=== PATIENT | female | born 1940 | race Native Hawaiian/Other Pacific Islander ===

== ENCOUNTER 2016-07-14 10:28 | Outpatient (CLI) | payer OTHER ==
[~2016-07-14 10:28] MED LIST: ACID REDUCER150 MG PO; ASA LO-DOSE81 MG PO; FLUOXETINE10 M2 PO; FURO40TA93 PO; MYRBETRIQ25 MG PO; PROPRANOLOL20 MG PO; SPIR25TA66 PO
[2016-07-14] MEDS ORDERED: SPIR100T7 PO (15:31)
[2016-07-14] MEDS ORDERED: AZO PO (15:33)
[2016-07-14] MEDS ORDERED: ARTIFICIAL TEAR1 OP (15:34)
== END 2016-07-14 10:31 | disposition short-term general hospital (02) ==
LOC: AMB 10:28
DX: R41.82 Altered mental status, unspecified (principal); R53.1 Weakness
CPT/HCPCS: A0425; A0427

== ENCOUNTER 2016-07-14 10:43 | Inpatient (IN) | payer OTHER ==
[2016-07-14] VITALS (8 sets, daily range): BP systolic 112–129; BP diastolic 47–69; TEMP 97.5–98.1; Ht 137.2 cm; Wt 71.0 kg
[~2016-07-14] VITALS: Ht 137.2 cm; Wt 71.0 kg
[2016-07-14 10:57] LABS: PLATELET COUNT 101 K/uL (152-353)
[2016-07-14 11:33] LABS: POTASSIUM 4.3 mmol/L (3.6-5.2); SODIUM 134 mmol/L (136-145)
[2016-07-14] MEDS ORDERED: SPIR100T7 PO (15:31)
[2016-07-14] MEDS ORDERED: AZO PO (15:33)
[2016-07-14] MEDS ORDERED: ARTIFICIAL TEAR1 OP (15:34)
[2016-07-15] VITALS: BP 116/58; TEMP 97.5
[2016-07-15 04:00] VITALS: BP 126/64; TEMP 97.6
[2016-07-15 04:05] LABS: PLATELET COUNT 84 K/uL (152-353)
[2016-07-15 04:09] LABS: POTASSIUM 3.9 mmol/L (3.6-5.2)
[2016-07-15 08:00] VITALS: BP 1274/67; TEMP 98
[2016-07-15 12:00] VITALS: BP 131/66; TEMP 98.1
[2016-07-15 16:00] VITALS: BP 124/64; TEMP 98.3
[2016-07-15 20:00] VITALS: BP 114/53; TEMP 98.5
[2016-07-16] VITALS: BP 109/60; TEMP 97.9
[2016-07-16 04:00] VITALS: BP 128/60; TEMP 98
[2016-07-16 04:48] LABS: PLATELET COUNT 98 K/uL (152-353)
[2016-07-16 04:55] LABS: POTASSIUM 3.5 mmol/L (3.6-5.2)
[2016-07-16 07:26] LABS: PARTIAL THROMBOPLASTIN TIME 35.3 SECONDS (24.5-33.6)
[2016-07-16 08:00] VITALS: BP 113/55; TEMP 98.6
[2016-07-16 12:28] VITALS: BP 133/71; TEMP 98.2
[2016-07-16 16:00] VITALS: BP 152/73; TEMP 97.8
[2016-07-16 20:00] VITALS: BP 136/81; TEMP 98.9
[2016-07-17 00:27] VITALS: BP 138/71; TEMP 98.3
[2016-07-17 05:12] VITALS: BP 135/66; TEMP 97.9
[2016-07-17 07:17] LABS: PLATELET COUNT 89 K/uL (152-353); POTASSIUM 3.7 mmol/L (3.6-5.2)
[2016-07-17 08:00] VITALS: BP 137/67; TEMP 98.1
[2016-07-17 12:00] VITALS: BP 138/63; TEMP 98.2
[2016-07-17 16:00] VITALS: BP 132/54; TEMP 98.4
[2016-07-17 20:00] VITALS: BP 150/70; TEMP 98
[2016-07-18] VITALS: BP 146/76; TEMP 98
[2016-07-18 04:59] LABS: PLATELET COUNT 105 K/uL (152-353)
[2016-07-18 05:19] LABS: POTASSIUM 3.7 mmol/L (3.6-5.2)
[2016-07-18 05:37] VITALS: BP 156/57; TEMP 98.8
[2016-07-18 08:21] VITALS: BP 116/60; TEMP 98.1
[2016-07-18 12:00] VITALS: BP 114/58; TEMP 98
[2016-07-18 16:00] VITALS: BP 120/48; TEMP 97.9
[2016-07-18 20:00] VITALS: BP 104/59; TEMP 98.8
[2016-07-19] VITALS: BP 114/58; TEMP 98.3
[2016-07-19 04:00] VITALS: BP 123/58; TEMP 98.5
[2016-07-19 08:00] VITALS: BP 107/53; TEMP 97.9
[2016-07-19 08:54] LABS: PLATELET COUNT 85 K/uL (152-353)
[2016-07-19 12:00] VITALS: BP 110/62; TEMP 98
[2016-07-19 16:00] VITALS: BP 112/53; TEMP 97.9
[2016-07-19 20:00] VITALS: BP 110/63; TEMP 98
[2016-07-20] VITALS: BP 115/52; TEMP 97.9
[2016-07-20 04:00] VITALS: BP 104/56; TEMP 97.8
[2016-07-20 06:02] LABS: POTASSIUM 3.8 mmol/L (3.6-5.2)
[2016-07-20 07:12] LABS: PLATELET COUNT 51 K/uL (152-353)
[2016-07-20 08:00] VITALS: BP 112/45; TEMP 97.8
[2016-07-20 12:00] VITALS: BP 118/52; TEMP 98
[2016-07-20 16:00] VITALS: BP 124/58; TEMP 97.8
[2016-07-20 20:00] VITALS: BP 99/50; TEMP 98.4
[2016-07-21] VITALS: BP 120/56; TEMP 98
[2016-07-21 04:00] VITALS: BP 98/65; TEMP 97.8
[2016-07-21 05:29] LABS: PLATELET COUNT 83 K/uL (152-353)
[2016-07-21 05:36] LABS: POTASSIUM 3.5 mmol/L (3.6-5.2)
[2016-07-21 08:29] VITALS: BP 121/83; TEMP 97.7
[2016-07-21 12:00] VITALS: BP 145/82; TEMP 98.1
== END 2016-07-21 16:25 | disposition home health service (06) | DRG 442 ==
LOC: ED 10:43 → MED/SURG 13:38
PROVIDERS: Emergency Medicine; Internal Medicine; ADMIT Specialist
DX: K72.90 Hepatic failure, unspecified without coma (principal); N39.0 Urinary tract infection, site not specified; E72.20 Disorder of urea cycle metabolism, unspecified; E86.0 Dehydration; K74.69 Other cirrhosis of liver; M15.8 Other polyosteoarthritis; I10 Essential (primary) hypertension; B96.20 Unspecified Escherichia coli [E. coli] as the cause of diseases classified elsewhere
CPT/HCPCS: 36415; 36600; 80048; 80053; 81000; 82140; 82272; 82550; 82553; 82805; 83605; 83735; 84100; 84484; 85027; 85379; 85610; 85651; 85730; 87045; 87077; 87086; 87088; 87186; 87205; 87798; 87899; 93005; 96360; 96372; 99284; J1644; J1720; J1940; J3411; J3475; J3490

== ENCOUNTER 2016-08-25 20:10 | Outpatient (CLI) | payer OTHER ==
[~2016-08-25 20:10] MED LIST changes: +ARTIFICIAL TEAR1 OP; +AZO PO; +SPIR100T7 PO
== END 2016-08-25 20:14 | disposition short-term general hospital (02) ==
LOC: AMB 20:10
DX: R53.1 Weakness (principal)
CPT/HCPCS: A0425; A0429

== ENCOUNTER 2016-08-25 20:20 | Inpatient (IN) | payer OTHER ==
[~2016-08-25] VITALS: Ht 160 cm; Wt 70.9 kg
[2016-08-25 20:39] VITALS: BP 134/68; TEMP 98.2
[2016-08-25 21:13] LABS: PLATELET COUNT 101 K/uL (152-353)
[2016-08-25 21:14] LABS: POTASSIUM 4.5 mmol/L (3.6-5.2); SODIUM 133 mmol/L (136-145)
[2016-08-26] VITALS (7 sets, daily range): BP systolic 114–154; BP diastolic 48–69; TEMP 97.8–98.6; Ht 160 cm; Wt 70.9 kg
[2016-08-27] VITALS: BP 107/56; TEMP 98
[2016-08-27 04:00] VITALS: BP 120/53; TEMP 98.7
[2016-08-27 05:36] LABS: PLATELET COUNT 96 K/uL (152-353)
[2016-08-27 05:41] LABS: POTASSIUM 4.6 mmol/L (3.6-5.2)
[2016-08-27 08:00] VITALS: BP 111/49; TEMP 98.2
== END 2016-08-27 15:30 | disposition home or self-care (01) | DRG 443 ==
LOC: ED 20:20 → MED/SURG 23:15
PROVIDERS: Emergency Medicine; ADMIT Emergency Medicine
DX: K72.00 Acute and subacute hepatic failure without coma (principal); K74.69 Other cirrhosis of liver; I10 Essential (primary) hypertension; E86.0 Dehydration; R19.7 Diarrhea, unspecified; K72.10 Chronic hepatic failure without coma; Z91.14 Patient's other noncompliance with medication regimen; D53.9 Nutritional anemia, unspecified
CPT/HCPCS: 36415; 80048; 80053; 82140; 82550; 83735; 84484; 85027; 99283; J2780

== ENCOUNTER 2016-09-18 10:49 | Outpatient (CLI) | payer OTHER | END 2016-09-18 10:52 | disposition short-term general hospital (02) | LOC: AMB 10:49 | DX: S41.111A Laceration without foreign body of right upper arm, initial encounter (principal); W18.39XA Other fall on same level, initial encounter; Y92.89 Other specified places as the place of occurrence of the external cause | CPT/HCPCS: A0425; A0429 ==

== ENCOUNTER 2016-09-29 14:17 | Outpatient (CLI) | payer OTHER | END 2016-09-29 14:20 | disposition short-term general hospital (02) | LOC: AMB 14:17 | DX: R53.1 Weakness (principal); W07.XXXA Fall from chair, initial encounter; Y92.098 Other place in other non-institutional residence as the place of occurrence of the external cause | CPT/HCPCS: A0425; A0429 ==

== ENCOUNTER 2016-09-29 14:26 | Inpatient (IN) | payer OTHER ==
[~2016-09-29] VITALS: Ht 162.6 cm; Wt 57.4 kg
[2016-09-29 14:25] VITALS: BP 120/68; TEMP 98
[2016-09-29 15:25] VITALS: BP 118/66
[2016-09-29 15:28] LABS: PLATELET COUNT 80 K/uL (152-353)
[2016-09-29 15:29] LABS: POTASSIUM 4.7 mmol/L (3.6-5.2)
[2016-09-29 16:25] VITALS: BP 110/58
[2016-09-29 17:25] VITALS: BP 106/70
[2016-09-29 20:00] VITALS: BP 105/38; TEMP 97.9
[2016-09-29 22:19] VITALS: BP 146/60; TEMP 98.3; Ht 162.6 cm; Wt 57.4 kg
--- NOTE | 2016-09-29 22:54 | NUR ---
PT HERE AT CHANGE OF SHIFT. EATING MEAL UPON ENTERING ROOM. PT HAS A LARGE BRUISE TO LEFT ARM FROM WRIST TO UPPER ARM. DR HOPKINS CALLED ABOUT MEDS ORDERED FROM ER. NEW ORDERS RECEIVED. BETSEY DOUGLASS AND SCD'S APPLIED TO PT'S LEGS POLA.
[2016-09-30] VITALS: BP 103/45; TEMP 97.8
[2016-09-30 04:00] VITALS: BP 95/50; TEMP 97.8
[2016-09-30 08:00] VITALS: BP 113/54; TEMP 97.7
[2016-09-30 09:22] LABS: PLATELET COUNT 86 K/uL (152-353)
[2016-09-30 09:45] LABS: POTASSIUM 4.4 mmol/L (3.6-5.2)
[2016-09-30 12:00] VITALS: BP 111/55; TEMP 98.2
[2016-09-30 16:00] VITALS: BP 103/72; TEMP 98.9
[2016-09-30 20:00] VITALS: BP 105/57; TEMP 98.7
[2016-10-01] VITALS: BP 107/59; TEMP 98.5
[2016-10-01 04:00] VITALS: BP 111/61; TEMP 99.4
[2016-10-01 06:09] LABS: POTASSIUM 3.9 mmol/L (3.6-5.2)
[2016-10-01 06:30] LABS: PLATELET COUNT 73 K/uL (152-353)
[2016-10-01 08:29] VITALS: BP 130/51; TEMP 99.3
[2016-10-01 12:00] VITALS: BP 114/50; TEMP 98.8
[2016-10-01 16:00] VITALS: BP 106/60; TEMP 98.5
[2016-10-01 20:00] VITALS: BP 113/55; TEMP 97.5
[2016-10-02] VITALS: BP 113/81; TEMP 97
[2016-10-02 04:00] VITALS: BP 99/42; TEMP 97
[2016-10-02 06:51] LABS: PLATELET COUNT 75 K/uL (152-353)
[2016-10-02 08:27] VITALS: BP 116/57; TEMP 98
[2016-10-02 12:00] VITALS: BP 124/70; TEMP 97.4
[2016-10-02 16:00] VITALS: BP 125/68; TEMP 98.2
[2016-10-02 20:00] VITALS: BP 103/49; TEMP 98.9
[2016-10-03] VITALS: BP 105/47; TEMP 98.4
[2016-10-03 04:00] VITALS: BP 115/54; TEMP 97.8
[2016-10-03 05:59] LABS: PLATELET COUNT 83 K/uL (152-353)
[2016-10-03 06:46] LABS: POTASSIUM 4.8 mmol/L (3.6-5.2)
[2016-10-03 08:00] VITALS: BP 126/62; TEMP 98
[2016-10-03 12:00] VITALS: BP 108/58; TEMP 97.8
[2016-10-03 16:00] VITALS: BP 128/52; TEMP 98
[2016-10-03 20:19] VITALS: BP 112/49; TEMP 98.2
[2016-10-04] VITALS: BP 139/58; TEMP 97.6
[2016-10-04 04:00] VITALS: BP 113/60; TEMP 97.7
[2016-10-04 06:20] LABS: POTASSIUM 4.5 mmol/L (3.6-5.2)
[2016-10-04 07:27] LABS: PLATELET COUNT 74 K/uL (152-353)
[2016-10-04 08:00] VITALS: BP 107/56; TEMP 97.6
--- NOTE | 2016-10-04 09:28 | NUR ---
SPOKE WITH PTS SISTER ABOUT PLAN FOR DISCHARGE. PTS SISTER DOES NOT WANT HER TO BE SENT BACK HOME BUT WOULD LIKE FOR HER TO HAVE RETIREMENT PLACEMENT. UR TALKED WITH SISTER ABOUT FINDING A RETIREMENT CLOSE TO [place]
[2016-10-04 12:00] VITALS: BP 125/54; TEMP 97.5
--- NOTE | 2016-10-04 14:10 | NUR ---
IV SITE D/C'D WITH TIP INTACT AND SITE CARE DONE. PT TO BE SENT TO [facility] IN [place]
--- NOTE | 2016-10-04 14:22 | NUR ---
REPORT GIVEN TO YURIY LAIRD RN AT [facility] IN [place]
--- NOTE | 2016-10-04 14:27 | NUR ---
AWAITING TRANSPORTATION BY SON AND SISTER TO [facility]
--- NOTE | 2016-10-04 14:59 | NUR ---
PT DRESSED PER FAMILY. PT OUT VIA W/C PER PCT WITH NAD.
== END 2016-10-04 14:55 | DRG 442 ==
LOC: ED 14:26 → MED/SURG 17:05
PROVIDERS: Emergency Medicine
DX: K72.90 Hepatic failure, unspecified without coma (principal); N39.0 Urinary tract infection, site not specified; E46 Unspecified protein-calorie malnutrition; K74.69 Other cirrhosis of liver; D69.6 Thrombocytopenia, unspecified; B96.20 Unspecified Escherichia coli [E. coli] as the cause of diseases classified elsewhere; R53.81 Other malaise
CPT/HCPCS: 36415; 80053; 81000; 81002; 82140; 83036; 83735; 85027; 87077; 87086; 87088; 87186; 93005; 99284; J0744; J3411; J3490